=== PATIENT | female | born 1995 | race Caucasian/White ===

== ENCOUNTER 2022-02-21 16:58 | Inpatient (IN) | payer BC ==
[2022-02-21 17:53] VITALS: BMI 30.1
[2022-02-21] MEDS ORDERED: Lactated Ringer's 1,000 ML IV SCH ×2 (18:00)
[2022-02-21] MEDS ORDERED: Ibuprofen 800 MG TAB PO PRN (18:00)
[2022-02-21] MEDS ORDERED: HYDROcodone/Acetaminophen 5/325 mg Tablet PO PRN (18:00)
[2022-02-21] MEDS ORDERED: Promethazine HCl 25 MG/ML VIAL IM PRN (18:00)
[2022-02-21] MEDS ORDERED: hydrALAZINE 20 MG/ML VIAL SLOW IVP PRN (18:00)
[2022-02-21] MEDS ORDERED: Ondansetron PF 4 MG/2 ML Vial IVP PRN (18:00)
[2022-02-21] MEDS ORDERED: Lidocaine 1% (PF) 30 ML VIAL SC PRN (18:00)
[2022-02-21] MEDS ORDERED: Butorphanol Tartrate 1 MG/ML VIAL SLOW IVP PRN (18:00)
[2022-02-21 18:35] LABS: Hemoglobin 11.6 g/dL (12.0-15.5); Mean Corpuscular HGB CONC 34.8 g/dL (32.0-36.0); Mean Corpuscular Hemoglobin 30.5 pg (27.0-33.0); Mean Corpuscular Volume 87.6 fl (81.6-98.3); Mean Platelet Volume 11.1 fl (7.4-10.4); Platelet Count 252 10x3/uL (150-450); RBC Distribution Width 12.5 % (11.5-14.5); White Blood Cell (WBC) Count 10.3 10x3/uL (3.5-10.5)
[2022-02-21 18:39] LABS: SARS-CoV-2 NAA Rapid Test Not Detected (NotDetected)
[2022-02-21 19:12] LABS: HBSAg Index 0.24 S/CO (0-0.99); Hep B Surf Ag Non-Reactive S/CO (NonReactive)
[2022-02-21 19:13] LABS: HIV (1/2) Antibody/Antigen Non-Reactive (NonReactive); HIV 1/2 INDEX 0.07 S/CO (<1.00)
[2022-02-21 19:19] LABS: Syphilis Antibody Nonreactive (Nonreactive); Syphilis Antibody Index 0.03 S/CO (<1.00 Non-Reactive)
[2022-02-22] MEDS: NS w/ Oxytocin 30 units 500 ML IV SCH ×2 (00:20→00:21)
[2022-02-22] MEDS ORDERED: Milk Of Magnesia 30 ML UDCUP PO PRN (03:13)
[2022-02-22] MEDS ORDERED: Benzocaine-Menthol 82.5 ML CAN TOP PRN (03:13)
[2022-02-22] MEDS ORDERED: Boostrix 0.5 ML (Tdap) VIAL IM ONE (03:13)
[2022-02-22] MEDS ORDERED: hydrALAZINE 20 MG/ML VIAL SLOW IVP PRN (03:13)
[2022-02-22] MEDS ORDERED: HYDROcodone/Acetaminophen 5/325 mg Tablet PO PRN (03:13)
[2022-02-22] MEDS ORDERED: Bisacodyl 10 MG SUPP PR PRN (03:13)
[2022-02-22] MEDS: Ibuprofen 800 MG TAB PO SCH ×3 (05:45→23:24)
[2022-02-22] MEDS: Ferrous Sulfate 325 MG TAB PO SCH ×2 (07:11→16:15)
[2022-02-22] MEDS: Docusate 100 MG CAP PO SCH ×2 (07:54→20:41)
[2022-02-23] MEDS: Ibuprofen 800 MG TAB PO SCH (07:05)
[2022-02-23 07:48] VITALS: BP 114/56; TEMP 98
[2022-02-23] MEDS: Ferrous Sulfate 325 MG TAB PO SCH (08:16)
[2022-02-23] MEDS: Docusate 100 MG CAP PO SCH (08:52)
== END 2022-02-23 12:55 | disposition home or self-care (01) | DRG 807 ==
LOC: CSHLD/OP 16:58 → CSHLD 20:55 → CSHPP 02-22 02:40
PROVIDERS: ADMIT Family Medicine; ATTEND Family Medicine
PROC: 10E0XZZ Delivery of Products of Conception, External Approach (ICD-10-PCS; principal; 2022-02-22)
PROC: 0KQM0ZZ Repair Perineum Muscle, Open Approach (ICD-10-PCS; 2022-02-22)
PROC: 3E0334Z Introduction of Serum, Toxoid and Vaccine into Peripheral Vein, Percutaneous Approach (ICD-10-PCS; 2022-02-22)
DX: O42.02 Full-term premature rupture of membranes, onset of labor within 24 hours of rupture (principal); Z37.0 Single live birth; Z3A.38 38 weeks gestation of pregnancy; Z20.822 Contact with and (suspected) exposure to COVID-19; O69.81X0 Labor and delivery complicated by cord around neck, without compression, not applicable or unspecified; O70.1 Second degree perineal laceration during delivery; O26.893 Other specified pregnancy related conditions, third trimester; Z67.11 Type A blood, Rh negative
CPT/HCPCS: 36415; 85027; 85461; 86780; 86850; 86900; 86901; 87340; 87389; 90384; 96372; J2001; J2590; U0002